=== PATIENT | female | born 1995 | race Caucasian/White ===

== ENCOUNTER 2017-03-26 20:07 | Emergency (ER) | payer SELFPAY ==
[~2017-03-26] VITALS: Ht 162.6 cm; Wt 54.4 kg
[2017-03-26 20:25] VITALS: BP 135/77
--- NOTE | 2017-03-26 20:39 | Emergency Room Report ---
History of Present Illness General Chief Complaint: Chest Pain Source: Patient (Ivana Sorensen M.D.) Present Illness HPI 21-year-old female with no sig pmhx p/w abdominal pain 4 days. Patient states pain started gradually, usually after eating, localized to right upper quadrant, radiating up towards chest, sharp in nature, intermittent. Patient states that she was at an outside hospital, with the same pain, she was told that she needed her gallbladder to be removed but outpatient not emergently The patient also admits to doing heroin this morning, however she is denying any other drug use such as cocaine or alcohol Denies nvd. Denies fever, chills. No hx of abdominal surgeries. No hx of endoscopies/colonoscopies. (Ivana Sorensen M.D.) Allergies: Coded Allergies: No Known Allergies (Unverified , 03/26/17) Patient History Past Medical History: see triage record Past Surgical History: none Pertinent Family History: none Reviewed Nursing Documentation: PMH: Agreed, PSxH: Agreed (Ivana Sorensen M.D. ) Nursing Documentation-PMH Past Medical History: No History, Except For Hx Gastrointestinal Problems: Yes - gallbladder (Ivana Sorensen M.D.) Review of Systems All Other Systems: negative except mentioned in HPI (Ivana Sorensen M.D.) Physical Exam Vital Signs Date Time Temp Pulse Resp B/P (MAP) Pulse Ox O2 Delivery O2 Flow Rate FiO2 03/26/17 20:18 97.0 165 22 135/77 100 Room Air Sp02 EP Interpretation: reviewed, normal General Appearance: alert, GCS 15, mild distress, other - appears slightly intoxicated Head: normocephalic, atraumatic Eyes: bilateral eye normal inspection, bilateral eye PERRL, bilateral eye EOMI ENT: normal ENT inspection, normal pharynx, normal voice, moist mucus membranes Neck: normal inspection, full range of motion, supple Respiratory: normal inspection, lungs clear, normal breath sounds, no respiratory distress, no retraction, no wheezing, speaking full sentences, chest symmetrical Cardiovascular #1: no edema, tachycardia Cardiovascular #2: 2+ radial (R), 2+ radial (L) Gastrointestinal: other - mild ruq tenderness, no guarding or rigidity, no lower abd tenderness, murphys neg Genitourinary: no CVA tenderness Musculoskeletal: normal inspection, back normal, normal range of motion, non- tender Neurologic: alert, oriented x3, responsive, motor strength/tone normal, sensory intact, normal gait, speech normal Psychiatric: judgement/insight normal, memory normal, anxious, other - appears slightly intoxicated Skin: normal inspection, normal color, no rash, warm/dry, well hydrated, normal turgor (AmandaoIvana M.DSaba) Medical Decision Making Diagnostic Impression: Primary Impression: Heroin abuse Additional Impressions: Abdominal pain Qualified Codes: R10.11 - Right upper quadrant pain Hypokalemia Chest pain Qualified Codes: R07.9 - Chest pain, unspecified ER Course 21-year-old female, history of cholelithiasis, with abdominal pain also admits to snorting heroin earlier today Differential Diagnosis: Gastritis, gastroenteritis, biliary colic/cholelithiasis, cholecystitis, appendicitis, diverticulitis, SBO, mesenteric ischemia, cardiac, UTI/pyelo At this time abdomen is soft nontender aside from right upper quadrant/ epigastric area, not likely to have other acute intra-abdominal surgical pathology, will hold CT intoxicated --- heroin / alcohol / cocaine/ marijuana Plan: Basic labs, ua, ekg pain control, IVF RUQ sono ER course: Patient initially tachycardic, IV fluids given tachycardia slightly improved Patient is found to be hypokalemic, however denies any nausea vomiting diarrhea , denies any laxative use -- supplemented She is still appears intoxicated and drowsy, patient states that the heroin that she uses usually lasts "a long time" Disposition: Signed out patient to Dr Apple 21 yo F with ?heroin intox / also RUQ abd pain (dx with cholelithiasis at outside hospital) -unlikely to have acute cholecystitis given benign physical exam, normal LFTs, but pending RUQ sono -pending sobriety and improvement of tachycardia -anticipate DC home Please note that this Emergency Department Report was dictated using [employer] superintendent technology software, occasionally this can lead to erroneous entry secondary to interpretation by the dictation equipment EKG Diagnostic Results EP Interpretation: Yes Rate: tachycardic Rhythm: NSR ST Segments: No acute changes ASA given to patient: No Rhythm Strip EP Interpretation: Yes Rate: 160 Rhythm: NSR, no PVCs, no ectopy (Ivana Sorensen M.DSaba) ER Course Patient signed out to me. She presents with chief complaint of chest pain admitted to snorting heroin. She also has a history of lithiasis that was diagnosed in an outside hospital. Ultrasound here is unremarkable. No evidence of cholecystitis. Labs unremarkable. Her potassium is low. I suspect that she was hyperventilating secondary to anxiety from drug abuse. She 's been calm here. We'll discharge home. Heart rate back to normal. (CARYN APPLE M.D.) CT/MRI/US Diagnostic Results CT/MRI/US Diagnostic Results : Imaging Test Ordered: Abdominal ultrasound Impression read by regional vice president life sales. Lots of gas. Gallbladder contracted. No obvious stone. (CARYN APPLE M.D.) Last Vital Signs Date Time Temp Pulse Resp B/P (MAP) Pulse Ox O2 Delivery O2 Flow Rate FiO2 03/26/17 20:18 97.0 165 22 135/77 100 Room Air (Ivana Sorensen M.D.) Status: improved (CARYN APPLE M.D.) Disposition: HOME, SELF-CARE Condition: Stable Scripts No Active Prescriptions or Reported Meds Additional Instructions: Stop using drugs. Followup with your DrSaba in 7 days. Return if worse. Ivana Sorensen M.D. Mar 26, 2017 20:39 CARYN APPLE M.D. Mar 26, 2017 22:49
[2017-03-26 20:46] LABS: BASOPHILS % (AUTO) 0.9 % (0.0-2.0); EOSINOPHILS % (AUTO) 1.6 % (0.0-3.0); LYMPHOCYTES % (AUTO) 34.5 % (20.0-45.0); MEAN CORPUSCULAR HEMOGLOBIN 29.4 PG (27.0-31.0); MEAN CORPUSCULAR HGB CONC 32.4 G/DL (32.0-36.0); MEAN CORPUSCULAR VOLUME 91 FL (80-99); MEAN PLATELET VOLUME 5.8 FL (6.5-10.1); MONOCYTES % (AUTO) 6.6 % (1.0-10.0); NEUTROPHILS % (AUTO) 56.5 % (45.0-75.0); PLATELET COUNT 414 K/UL (150-450); RED CELL DISTRIBUTION WIDTH 11.9 % (11.6-14.8); WHITE BLOOD COUNT 11.1 K/UL (4.8-10.8)
[2017-03-26 21:03] LABS: ALANINE AMINOTRANSFERASE 17 U/L (12-78); ALBUMIN/GLOBULIN RATIO 1.1 (1.0-2.7); ANION GAP 13 mmol/L (5-15); ASPARTATE AMINO TRANSFERASE 20 U/L (15-37); CALCIUM 9.4 MG/DL (8.5-10.1); CARBON DIOXIDE 25 MMOL/L (21-32); CHLORIDE 103 MMOL/L (98-107); GLOMERULAR FILTRATION RATE > 60 mL/min (>60); LIPASE 108 U/L (73-393); SODIUM 140 MMOL/L (136-145); TOTAL PROTEIN 7.7 G/DL (6.4-8.2)
[2017-03-26 21:06] LABS: POTASSIUM 2.7 MMOL/L (3.5-5.1)
[2017-03-26 23:00] VITALS: BP 128/84
[2017-03-26 23:10] VITALS: BP 128/84
--- NOTE | 2017-03-27 10:18 | Diagnostic Imaging Report ---
Indication: Right upper quadrant pain Technique: Man-scale and duplex images of the upper abdomen were obtained Comparison: None Findings: Gallbladder is nondistended, limiting evaluation. No gross stones or pericholecystic fluid. Sonographic Guzman's sign could not be determined as patient was medicated, per technologist. Common bile duct measures 3 mm in diameter. No intrahepatic biliary ductal dilatation. Liver demonstrates normal echogenicity, no focal abnormality. Portal vein and hepatic veins are patent. Pancreas is unremarkable. Spleen is unremarkable. Left kidney measures 10.2 cm in length. Right kidney measures 9.2 cm length. Both kidneys demonstrate normal echogenicity. There is no hydronephrosis. No focal abnormality . Non-aneurysmal abdominal aorta . Impression: Limited evaluation of the gallbladder, as it is nondistended Essentially unremarkable exam otherwise
--- NOTE | 2017-03-27 18:36 | Cardiology Report ---
APPROVED REPORT EKG Measurement Heart [id number] Sinus tachycardia Septal infarct, age undetermined Abnormal ECG
== END 2017-03-26 23:10 | disposition home or self-care (01) ==
LOC: EMR 20:30
DX: F11.10 Opioid abuse, uncomplicated (principal); R10.11 Right upper quadrant pain; E87.6 Hypokalemia; R07.9 Chest pain, unspecified
CPT/HCPCS: 36415; 76700; 80053; 83690; 84702; 85025; 93005; 96361; 96365; 99284; G0480; J3480; 80329; J8499